=== PATIENT | female | born 1950 | race Caucasian/White ===

== ENCOUNTER → 2017-02-18 | Outpatient (CLI) | payer OTHER ==
[~2017-02-18] MED LIST: ASPI325T PO; ASPI81TA5 PO; ASPI81TA82 PO; ATOR10TA15 PO; BIOT10TA PO; BUPR150T3 PO; CHOL1CAP6 PO; CITA-48 PO; CITA40TA4 PO; FERR325T PO; HYDR-3516 PO; IBUP800T23 PO; OMEP20TA PO; OMEP20TA39 PO; PERI8.6T PO; TRAM50TA PO; UNIS50CA PO; VITA200C3 PO; VITA3000 PO; VITA400C70 PO; VITA500S3 PO; VITATAB43 PO; WALKER WHEELS/F1 MIS; WELL150T PO; [UNRECOGNIZED DRUG - CODE] PO
[2017-02-18 10:49] LABS: AUTOMATED NEUTROPHIL # 4.3 TH/MM3 (1.8-7.7); BASOPHIL # 0.1 TH/MM3 (0-0.2); BASOPHIL % 1.4 % (0.0-2.0); EOSINOPHIL # 0.3 TH/MM3 (0-0.4); EOSINOPHIL % 3.5 % (0.0-4.0); HEMATOCRIT 37.7 % (35.0-46.0); HEMO FLAGS DIFF FINAL; LYMPHOCYTE # 3.4 TH/MM3 (1.0-4.8); MEAN CELL VOLUME 82.6 FL (80.0-100.0); MEAN CORPUSCULAR HEMOGLOBIN 27.1 PG (27.0-34.0); MEAN CORPUSCULAR HGB CONC 32.8 % (32.0-36.0); NEUT % 48.1 % (16.0-70.0); PLATELET COUNT 273 TH/MM3 (150-450); RED BLOOD COUNT 4.57 MIL/MM3 (4.00-5.30); RED CELL DISTRIBUTION WIDTH 13.8 % (11.6-17.2)
[2017-02-18 10:55] LABS: INTERNATIONAL NORMALIZED RATIO 0.9 RATIO
[2017-02-18 11:16] LABS: BICARBONATE 28.2 MEQ/L (21.0-32.0); POTASSIUM 3.6 MEQ/L (3.5-5.1)
[2017-02-18 12:04] LABS: BLOOD, URINE NEG (NEG); GLUCOSE,URINE NEG (NEG); KETONE, URINE NEG (NEG); NITRITE,URINE NEG (NEG); PH, URINE 5.5 (5.0-8.5); URINE COLOR YELLOW (YELLW/STRAW)
[2017-02-18 12:07] LABS: COMMENT (UR) CATH-CULT NOT IND; CULTURE IF INDICATED CATH CULTURE NOT IND
--- NOTE | 2017-02-18 12:46 | RADRPT ---
EXAM DATE/TIME: 02/18/2017 11:54 [facility] COMPARISON: CHEST PA & LAT, December 26, 2015, 11:14. INDICATIONS : Evaluate for pneumonia,pneumothorax and communicable diseases. Pre-op Knee surgery MEDICAL HISTORY : None. SURGICAL HISTORY : None. ENCOUNTER: Initial ACUITY: 1 day PAIN SCORE: 0/10 LOCATION: chest FINDINGS: PA and lateral views of the chest demonstrate the lungs to be symmetrically aerated without evidence of mass, infiltrate or effusion. The cardiomediastinal contours are unremarkable. Degenerative disc disease throughout the thoracic spine. CONCLUSION: No acute disease. Andrew Berry Jr., MD on February 18, 2017 at 12:44 Board Certified Radiologist. This report was verified electronically.
--- NOTE | 2017-02-19 20:10 | EKG ---
Date Performed: 02/18/2017 Time Performed: 10:59:23 PTAGE: 66 years EKG: Sinus rhythm NONSPECIFIC T-WAVE ABNORMALITY BORDERLINE ECG Compared to prior tracing no significant change DOCTOR: Gemini Lucero Interpretating Date/Time 02/19/2017 20:08:54
== END ==
LOC: CPRE 10:10
PROVIDERS: ATTEND Orthopaedic Surgery
DX: Z01.812 Encounter for preprocedural laboratory examination (principal); Z01.811 Encounter for preprocedural respiratory examination; Z01.810 Encounter for preprocedural cardiovascular examination; S83.242D Other tear of medial meniscus, current injury, left knee, subsequent encounter; R94.31 Abnormal electrocardiogram [ECG] [EKG]; X58.XXXD Exposure to other specified factors, subsequent encounter
CPT/HCPCS: 36415; 71020; 80048; 81001; 85025; 85610; 93005

== ENCOUNTER 2017-03-05 05:09 | Inpatient (IN) | payer OTHER ==
--- NOTE | 2017-02-24 11:48 | MH ---
cc: JOAN RODRIGUEZ DATE OF ADMISSION: 03/05/2017 ADMITTING DIAGNOSIS 1. Chondromalacia, right knee. 2. Lateral meniscus tear, right knee. 3. Osteoarthritis, right knee. 4. Pain, right knee. HISTORY OF PRESENT ILLNESS The patient is a 66-year-old white female who has had a rather lengthy history of pain involving her right knee. She had undergone previous intervention and treatment for pain of the knee dating back at least 2-3 years for which she was diagnosed as having a lateral meniscus tear and subsequently underwent at least two arthroscopic surgeries, the more recent of which was completed in December of this past year. At that time findings also included osteoarthritis about her knee, although the patient was noted to have tolerated her operative procedure well and her initial recovery thereafter was satisfactory. She returned to the office in November of this year reporting that she was having pain and swelling about her right knee that had begun to interfere with her daily routine. X-ray studies at that time revealed hypertrophic reaction along the medial and lateral aspect of the joint consistent with an arthritic reaction. Findings and treatment options were reviewed. The patient was prescribed tramadol for pain management and followed on an outpatient basis thereafter. Unfortunately her symptoms persisted for which she did undergo a more current MRI scan with findings reporting a degenerative tear involving the body of the lateral meniscus as well as chondromalacia both laterally and medially with the patient continuing to note ongoing pain about her right knee. She had been taking ibuprofen 800 mg for pain management. Findings and treatment options were reviewed with the patient at that time. The pros and cons of continuing with conservative management versus operative intervention that would involve a repeat arthroscopic procedure as opposed to total knee arthroplasty was outlined in detail. The pluses and minuses of each of these surgical procedures was reviewed. Emphasis was made regarding the fact that the decision to proceed with surgery would be left entirely to the patient's discretion. At that time the patient noted that based upon her experience of having had at least two previous arthroscopic procedures and the ongoing pain that she was currently noting associated with limitations regarding all activities of daily living and no significant relief appreciated from continued use of medication, she was ready to proceed with surgery involving total knee arthroplasty as discussed. In compliance with her wishes she has currently been scheduled for admission in order that the above be accomplished. PAST MEDICAL/SURGICAL HISTORY Her past medical history, hospitalizations and surgeries have included: 1. Excision of a lipoma of the left shoulder. 2. section. 3. D&C following miscarriage. 4. Medical management for pulmonary embolus. Her medical illnesses include: 1. Gastric reflux. 2. Depression. 3. Elevated cholesterol. MEDICATIONS Current medications: 1. Omeprazole 20.6 mg daily. 2. Laurie-Colace 8.6 mg twice daily. 3. Wellbutrin 150 mg daily. 4. Citalopram 40 mg daily. 5. Atorvastatin 10 mg daily. 6. Unisom 50 mg, two at bedtime for sleep. 7. Tramadol 50 mg q.6h. p.r.n. pain. ALLERGIES THE PATIENT DESCRIBES A DRUG ALLERGY TO SULFA WHICH HAS BEEN ASSOCIATED WITH ITCHING, HIVES AND SWELLING. REVIEW OF SYSTEMS She does wear glasses. She has a history of seizure disorder but no current problems described. No headache or syncope. Auditory acuity intact. No tinnitus. No bleeding gums or dysphagia. She has partial lower dentures. No cough, shortness of breath, upper respiratory infection, pneumonia or tuberculosis. No angina or heart disease. Appetite is good. Bowel movements are regular. No hepatitis, gallbladder disease, ulcers or hemorrhoids. No urinary tract infection. No kidney stones. She has had a fracture of her right foot treated nonoperatively and positive history for psychiatric intervention for a history of depression. The remaining review of systems is unremarkable and noncontributory. FAMILY HISTORY 37 years. Her is 66 years of age. He has a history of depression as well as diagnosed with Agent [employer] exposure and being status post open heart surgery. Two sons are noted to be in good health. FAMILY HISTORY Positive for diabetes, kidney disease, cervical cancer and stroke. SOCIAL HISTORY The patient is a housewife. She completed a high school education. Denies active use of tobacco and ethanol. PHYSICAL EXAMINATION Height 5 feet 6 inches, weight 190 pounds. GENERAL: An alert, oriented and responsive 66-year-old white female who sits quietly upon the examination table with no obvious distress. HEAD, EYES, EARS, NOSE, AND THROAT: Pupils are equally round and reactive to light. Extraocular movements full. Sclera clear. External nares clear. External auditory canals clear. Semi-edentulous in the maxillary distribution. Mucous membranes pink and moist. Pharynx clear. NECK: Supple. Active mobility with no significant pain. Carotid pulse palpable bilaterally. Trachea midline. Thyroid without enlargement. LUNGS: Clear to auscultation and percussion. BACK: No CVA tenderness. No discomfort throughout the dorsolumbar spine. HEART: Regular rhythm. No murmur or gallop. ABDOMEN: Soft, nontender. Bowel sounds present. PELVIC: Per primary care physician. EXTREMITIES: Right Knee: No appreciable swelling or obvious effusion. Medial joint line tenderness without palpable deformity. Apprehension and compression sign negative. 0-90 degree range of motion with discomfort at the extreme of flexion. No obvious crepitation or instability. Marcus test and drawer sign negative. Pivot shift and Luba sign positive for lateral compartment pain. Straight-leg raising negative at 80 degrees. Satisfactory mobility of the right hip with no associated pain. Independent gait. NEUROLOGIC: Cranial nerves II through XII grossly intact. IMPRESSION 1. Chondromalacia, right knee. 2. Lateral meniscus tear, right knee. 3. Osteoarthritis, right knee. 4. Pain, right knee. 5. Co-morbidities including depression, elevated cholesterol and acid reflux. PLAN Right total knee arthroplasty. The nature of the planned surgical procedure, the potential complications and risks associated, the expectations of surgery and the consent form were thoroughly reviewed with the patient prior to her admission to the hospital. Annalise has indicated her full understanding regarding all of the above and given consent to proceed with treatment as outlined. Medical evaluation and clearance for surgery will be completed by her primary care physician, Dr. Jose Yates. Joan Rodriguez MD NBS/BT /11:16 AM /11:28 AM
[~2017-03-05] VITALS: Ht 168.9 cm; Wt 88.1 kg
[~2017-03-05 05:09] MED LIST changes: -ASPI325T PO; -ASPI81TA82 PO; -CHOL1CAP6 PO; -CITA-48 PO; -FERR325T PO; -HYDR-3516 PO; -IBUP800T23 PO; -OMEP20TA39 PO; -VITA400C70 PO; -VITA500S3 PO; -WALKER WHEELS/F1 MIS; -WELL150T PO; -[UNRECOGNIZED DRUG - CODE] PO
[2017-03-05] MEDS ORDERED: LACTATED RINGER'S 1000 ML IV PRN (05:45)
[2017-03-05] MEDS ORDERED: INSULIN HUMAN REGULAR 1,000 UNITS/10 ML VIAL SQ PRN (05:45)
[2017-03-05] MEDS ORDERED: CHLORHEXIDINE GLUCONATE 2 % 1 PACK (2 CLOTHS) TOPICAL PRN (05:45)
[2017-03-05] MEDS ORDERED: METOPROLOL TARTRATE 25 MG TAB PO PRN (05:45)
[2017-03-05] MEDS ORDERED: SODIUM CHLORID 0.9% 500 ML IV PRN (05:45)
[2017-03-05] MEDS ORDERED: POVIDONE IODINE 5% (ANTISEPSIS KIT) 4 APPLICATIONS EACH NARE PRN (05:45)
[2017-03-05] MEDS ORDERED: POVIDONE IODINE 7.5% SCRUB 118 ML BOTTLE TOPICAL SCH (06:00)
[2017-03-05] MEDS ORDERED: ceFAZolin 2 GM PREMIX 50 ML IV SCH (06:00)
[2017-03-05] MEDS: TRANEXAMIC ACID 1 GM PRIOR TO PROCEDURE IV SCH ×4 (06:10→06:13)
[2017-03-05] MEDS ORDERED: ceFAZolin INJ 1,000 MG VIAL ONE (06:11)
[2017-03-05] MEDS ORDERED: DEXAMETHASONE SOD PHOS 4 MG/ML VIAL ONE (06:33)
[2017-03-05] MEDS ORDERED: FAMOTIDINE 20 MG/2 ML VIAL ONE (06:33)
[2017-03-05] MEDS ORDERED: MIDAZOLAM HCL 2 MG/2 ML VIAL ONE (06:33)
[2017-03-05] MEDS ORDERED: ACETAMINOPHEN 1000 MG/100 ML 100 ML IV ONE (06:33)
[2017-03-05] MEDS ORDERED: DO NOT ADM ANY ANTICOAGULANT DRUGS PRN (09:11)
[2017-03-05] MEDS ORDERED: diphenhydrAMINE HCL 25 MG CAP PO PRN (09:30)
[2017-03-05] MEDS ORDERED: NALOXONE HCL 0.4 MG/ML AMP IV PRN (09:30)
[2017-03-05] MEDS ORDERED: ACETAMINOPHEN/HYDROcodone 325 MG/5 MG TAB PO PRN (09:30)
[2017-03-05] MEDS ORDERED: ACETAMINOPHEN 325 MG TAB PO PRN (09:30)
[2017-03-05] MEDS ORDERED: MISCELLANEOUS PHARMACY INFORMATION XX ONE (09:30)
[2017-03-05] MEDS ORDERED: Post-op Orders (for Pharmacy) MISC XX ONE (09:30)
[2017-03-05] MEDS ORDERED: SODIUM CHLORIDE 0.9% FLUSH 5 ML FLUSH IVF PRN (09:30)
[2017-03-05] MEDS ORDERED: TRANEXAMIC ACID INJ 1,000 MG in SODIUM CHLORIDE 0.9% INJ 100 ML IV SCH (09:30)
[2017-03-05] MEDS ORDERED: *HYDROmorphone PF 1 MG VIAL PERIprocedural Use ONLY ONE ×2 (09:32→09:55)
[2017-03-05] MEDS ORDERED: TRANEXAMIC ACID 1 GM POST-OP IV SCH ×2 (10:00)
[2017-03-05] MEDS: DEXT 5%-NACL 0.45% 1000 ML INJ 1,000 ML IV SCH ×2 (10:06→17:19)
--- NOTE | 2017-03-05 10:41 | MP ---
cc: JOAN RODRIGUEZ M.D. DATE OF SURGERY: 03/05/2017 PREOPERATIVE DIAGNOSIS Osteoarthritis of the right knee, chondromalacia right knee, lateral meniscus tear right knee and pain of the right knee. POSTOPERATIVE DIAGNOSIS Osteoarthritis of the right knee, chondromalacia right knee, lateral meniscus tear right knee and pain of the right knee. PROCEDURE Right total knee arthroplasty. SURGEON Dr. Joan Rodriguez ANESTHESIA General endotracheal. INDICATIONS A 66-year-old white female with a lengthy history of right knee pain extending back almost 3 years, at which time the patient was diagnosed as having a lateral meniscus tear for which she did undergo two previous arthroscopic surgeries, the more recent which was completed in December of this past year. At that time findings also noted osteoarthritic changes, although the patient was noted to have tolerated her operative procedure well and her initial recovery thereafter was satisfactory. She returned to the office in November reporting that she was having pain and swelling about her right knee that had begun to interfere with her daily routine. Her x-ray studies at that time revealed hypertrophic reaction along the medial and lateral aspect of the joint consistent with an arthritic reaction. Findings and treatment options were reviewed. The patient was prescribed tramadol for pain management and followed on outpatient basis. Unfortunately, her symptoms persisted for which she did undergo more current MRI scan with findings reporting a degenerative tear involving the body of the lateral meniscus with associated chondromalacia both medially and laterally. The patient had been taking ibuprofen 800 mg for pain management. Findings and treatment options were reviewed at that time, the pros and cons of continuing with conservative management versus operative intervention that would involve repeat arthroscopic surgery as opposed to total knee arthroplasty was outlined in detail. The pluses and minuses of each of the surgical procedures was reviewed. Emphasis were made regarding the fact that the decision to proceed with surgery would be left entirely to the patient's discretion. At that time the patient indicated that based upon her previous experience and having undergone two previous arthroscopic surgeries without long-term benefit being noted, she was ready to proceed with a more definitive course of treatment and expressed her desire to be admitted at this time in order that total knee replacement be accomplished. In compliance with her request she was admitted currently in order that the above be completed. FORMAT Following induction of satisfactory general anesthesia by endotracheal intubation as completed per the Department of Anesthesia, tourniquet was established around the proximal portion of the right lower extremity. The extremity proper was isolated with a U drape, thereafter being prepped with Betadine solution and draped into a sterile field in the routine manner. Prior to initiation of the actual procedure the standard time-out protocol was completed, all parameters were appropriately addressed and confirmed by operating room personnel. The extremity was elevated for approximately 1 minute and the tourniquet thus inflated to 250 mmHg pressure. A sharp skin incision was initiated midline over the anterior aspect of the knee and developed to underlying subcutaneous tissue with hemostasis maintained by electrocautery. Medial capsulotomy was completed with the patella subluxed in a lateral orientation. Examination of the joint space revealed significant tricompartmental degenerative changes, more pronounced than what her preoperative x-ray studies had suggested. The articular surface of the patella was resected with power saw. The three hole guide was utilized for establishing post holes. Anterior cruciate ligament as well as medial and lateral meniscus structures were sharply excised. A centering hole was placed in the distal aspect of the femur allowing positioning of the intramedullary guide. The distal femoral cutting jig was attached and the distal femur resected. AP measurement noted 67.5 mm sizing to be appropriate. The matching cutting block was positioned, anterior, posterior and chamfer cuts were completed. The tibial plateau was thereafter subluxed in an anterior orientation allowing positioning the extramedullary guide. Tibial plateau was resected and measured with 75 mm sizing determined to be appropriate. The trial reduction followed utilizing a 67.5 mm anatomic femoral component, a 75 mm tibial base with a 10 mm bearing insert. The knee was reduced and carried through a passive range of motion, stability was demonstrated at 0 and 90 degrees flexed posture. Orientation was confirmed as appropriate with measurement of the pelvic guide through the mechanical axis of the knee. A trial reduction followed utilizing a 34 mm standard patellar button. Once again good tracking demonstrated with no tendency toward subluxation. All trial components being removed the remaining portion of the proximal tibia was prepared for insertion of the permanent component. The joint space was thoroughly lavaged with pulsating antibiotic solution. Hemostasis was maintained by electrocautery. An autogenous bone plug was inserted into the distal femoral guide hole and thereafter a preparation of Palacos bone cement was utilized in inserting knee components in a sequential fashion which included a 75 mm fixed cruciate tibial plate to which a 10 mm Vanguard tibial bearing insert was secured with locking benavides. The 67.5 mm Vanguard femoral component was firmly seated onto the distal femur, excess cement being removed the knee was brought to full extension and thereafter the 34 mm standard three post all poly patellar button was attached and maintained in place with patellar clamp while cement hardening was completed. Final range of motion assessment noted good tracking stability throughout the knee. Irrigation was repeated with hemostasis maintained. Autovac drain tubes were inserted through superior stab wounds. The capsule was repaired with 0 Vicryl suture. The remaining portion of the wound was closed in layers in the routine manner. Skin margins being reapproximated with a running subcuticular 3-0 Vicryl suture over which Steri-Strips were applied. Xeroform gauze and a bulky dry sterile dressing was placed. Tourniquet was deflated after 51 minutes of tourniquet time, the extremity being supported in a canvas knee splint, anesthesia was discontinued. She was thereafter transferred to a hospital bed and returned to the recovery room in satisfactory condition having tolerated her operative procedure well. Estimated blood loss was approximately 150 ccs as determined per anesthesia. All implants were of the [employer] peanut shaker. Joan Rodriguez MD NBS/TLL /9:11 AM /10:07 AM
[2017-03-05] MEDS: MORPHINE SULFATE 30 MG/30 ML PCA IV SCH ×2 (11:09→21:48)
--- NOTE | 2017-03-05 11:19 | RADRPT ---
EXAM DATE/TIME: 03/05/2017 09:51 [facility] COMPARISON: No previous studies available for comparison. INDICATIONS : Post op right knee surgery MEDICAL HISTORY : None. SURGICAL HISTORY : None. ENCOUNTER: Initial ACUITY: 1 day PAIN SCORE: 8/10 LOCATION: Right knee FINDINGS: 2 view examination of the knee demonstrates non-cemented total knee arthroplasty. Osseous structures are in orthotopic position. 2 surgical drains are present in the suprapatellar region. CONCLUSION: Postop findings status post total knee arthroplasty. A Andrew Abrams MD on March 05, 2017 at 11:17 Board Certified Radiologist. This report was verified electronically.
[2017-03-05] MEDS ORDERED: PROPOFOL 200 MG/20 ML AMP IV ONE (13:41)
[2017-03-05] MEDS ORDERED: NEOSTIGMINE 3 MG/3 ML SYR IV ONE (13:41)
[2017-03-05] MEDS ORDERED: ePHEDrine/NS 25 MG/5 ML SYR IV ONE (13:41)
[2017-03-05] MEDS ORDERED: ONDANSETRON HCL 4 MG/2 ML VIAL IV PUSH ONE (13:41)
[2017-03-05] MEDS ORDERED: LACTATED RINGER'S 1000 ML INJ 1,000 ML IV ONE (13:41)
[2017-03-05 16:00] VITALS: BP_SYST 116; BP_SYST 134; BP_DIAS 59; BP_DIAS 66; PULSE 120; PULSE 94; RESP 16; TEMP 96.7; TEMP 97.2; O2SAT 96; O2SAT 97
[2017-03-05] MEDS: ONDANSETRON HCL 4 MG/2 ML VIAL IVP PRN (17:52)
[2017-03-05] MEDS: PCA - TOTAL MG MORPHINE DELIVERED PER SHIFT SCH ×2 (18:00→21:48)
[2017-03-05 20:05] VITALS: BP 122/59; PULSE 96; RESP 16; TEMP 98.7; O2SAT 95
[2017-03-05] MEDS ORDERED: ZOLPIDEM TARTRATE 5 MG TAB PO PRN (21:00)
[2017-03-05] MEDS: SODIUM CHLORIDE 0.9% FLUSH 5 ML FLUSH IVF SCH ×2 (21:47→21:57)
[2017-03-06] VITALS (7 sets, daily range): BP systolic 102–129; BP diastolic 52–63; PULSE 87–104; RESP 16–17; TEMP 97.2–99.2; O2SAT 92–95
[2017-03-06] MEDS: ONDANSETRON HCL 4 MG/2 ML VIAL IVP PRN ×2 (02:39→09:36)
[2017-03-06] MEDS: DEXT 5%-NACL 0.45% 1000 ML INJ 1,000 ML IV SCH ×2 (02:41→20:46)
[2017-03-06] MEDS ORDERED: ALPRAZolam 0.25 MG TAB PO ONE (04:00)
[2017-03-06] MEDS: ACETAMINOPHEN/HYDROcodone 325 MG/5 MG TAB PO PRN ×4 (04:07→20:47)
[2017-03-06 05:31] LABS: HEMATOCRIT 29.9 % (35.0-46.0); REVIEW FLAG FINAL
[2017-03-06] MEDS: PCA - TOTAL MG MORPHINE DELIVERED PER SHIFT SCH (06:00)
[2017-03-06] MEDS ORDERED: HYDR-3516 PO (06:09)
[2017-03-06] MEDS ORDERED: ASPI325T PO (06:09)
--- NOTE | 2017-03-06 06:11 | HHI.FF ---
Face to Face Verification Diagnosis: (1) DJD (degenerative joint disease) of knee Physical Therapy Gait training Knee: Total knee, Protocol: Right, Full weight bearing Right LE Weight Bearing: WB as tolerated Right LE Range of Motion: Active ROM Nursing Dressing Changes: Daily dressing change I have seen patient Annalise Dumont on 03/06/17. My clinical findings support the need for the requested home health care services because: Limited ability to care for self High risk of falls I certify that my clinical findings support that this patient is homebound because: Post-op weakness Unsteady gait/balance Unsafe to leave home unassisted Parviz Rodriguez MD Mar 06, 2017 06:11
[2017-03-06] MEDS ORDERED: WALKER WHEELS/F1 MIS (06:14)
[2017-03-06] MEDS: RIVAROXABAN 10 MG TAB PO SCH (07:57)
[2017-03-06] MEDS ORDERED: HYDROmorphone HCL PCA 6 MG/30 ML IV SCH (08:45)
[2017-03-06] MEDS ORDERED: NALOXONE HCL 0.4 MG/ML AMP IV PRN (08:45)
[2017-03-06] MEDS: SODIUM CHLORIDE 0.9% FLUSH 5 ML FLUSH IVF SCH ×2 (08:49→20:46)
[2017-03-06] MEDS ORDERED: BUPIVACAINE HCL PF 0.5% 30 ML VIAL NERV BLOCK ONE (10:03)
[2017-03-06] MEDS: PROMETHAZINE INJ 25 MG/ML VIAL IM PRN ×2 (14:26→20:47)
--- NOTE | 2017-03-06 16:21 | PD.CONS ---
HPI Service [facility] Consult Requested By Parviz Rodriguez M.D. Reason for Consult Medical management. Primary Care Physician Unknown Diagnoses: History of Present Illness Written by John Paul Molina PA-C, acting as scribe for Dr. Harrison Fulton on 03/06/17 at 16:12. Mrs. Dumont is 66 years old, with history of GERD, hyperlipidemia, depression, and H. pylori. Additionally she has had chronic right knee pain related to her osteoarthritis, meniscal tear and chondromalacia. Ms. Dumont underwent right total knee arthroplasty on 03/05/17. The hospitalist team was consulted in order to provide medical management for her chronic conditions. At time of interview, Ms. Dumont reported feeling nauseous and having bouts of emesis as a result of morphine use. She stated she had felt well before her surgery and since that time she has had multiple bouts of "throwing up." She stated that her pain was being well managed and rated it as a 5 out of 10. She noted that her knee felt "warm on the inside". Additionally, she reported feeling dizzy and having decreased focus, and "not being able to hold urine when throw up". She denied fever, cough, shortness of breath, abdominal/chest pain. She noted that her depression has been well controlled for the past 4 years. A 10 point review of systems was completed and, except as noted above, was negative. Review of Systems Except as stated in HPI: all other systems reviewed are Neg Past Family Social History Allergies: Coded Allergies: Sulfa (Sulfonamide Antibiotics) (Unverified Allergy, Intermediate, HIVES, 02/18/17) Uncoded Allergies: MDRO (Adverse Reaction, Unknown, 02/18/17) MRSA L LEG OVER 5 YEARS AGO Past Medical History Chronic right knee pain related to her osteoarthritis, meniscal tear and chondromalacia Depression, GERD, Hyperlipidemia, Iron deficiency H. pylori. Associated with bleeding ulcer and weight loss. She reported H. pylori being successfully treated with antibiotics and she has regained some of her weight. Past Surgical History . D and C post miscarriage. Excision of lipoma left shoulder 2 Reported Medications Reported Meds & Active Scripts Active Walker with Front Wheels (Device) 1 Mis Mis Ea .ROUTE DIRECTED use as directed per P.T. Aspirin 325 Mg Tab 325 Mg PO BID Hydrocodone-Acetaminophen 5-325 mg Tab 2 Tab PO Q6HR PRN Reported Tramadol (Tramadol HCl) 50 Mg Tab 100 Mg PO Q6H PRN Unisom Sleepgels (Diphenhydramine (Sleep)) 50 Mg Cap 50 Mg PO HS PRN Atorvastatin (Atorvastatin Calcium) 10 Mg Tab 10 Mg PO HS Citalopram (Citalopram Hydrobromide) 40 Mg Tab 40 Mg PO HS Bupropion HCl ER 24 HR (Bupropion HCl) 150 Mg Tab 150 Mg PO HS Laurie-Colace (Sennosides-Docusate Sodium) 8.6-50 Mg Tab 1 Tab PO BID Omeprazole 20 Mg Tab 20 Mg PO DAILY Aspirin DR (Aspirin) 81 Mg Tabdr 81 Mg PO DAILY Vitamin T19-Etnny Acid (Cobalamine Combinations) 500-400 Mcg Tab 2 Tab PO DAILY Biotin 10 Mg Tab 10 Mg PO DAILY Vitamin E 200 Unit Cap 400 Units PO DAILY Vitamin D3 (Cholecalciferol) 3,000 Unit Tab 3,000 Units PO DAILY Active Ordered Medications Current Medications Medications (Trade) Dose Ordered Sig/Alvin Route Start Time Stop Time Status Last Admin Lactated Ringer's 1,000 ml @ 30 mls/hr Q24H PRN IV 03/05/17 05:45 03/08/17 05:44 03/05/17 05:45 Sodium Chloride 500 ml @ 30 mls/hr [id number] PRN IV 03/05/17 05:45 03/08/17 05:44 (Lopressor) 25 mg ON AWAKE COUNSELOR PRN PO 03/05/17 05:45 03/08/17 05:44 (Betadine 5% Antisepsis Kit) 1 applic ON AWAKE COUNSELOR PRN EACH NARE 03/05/17 05:45 03/08/17 05:44 03/05/17 05:45 (Chlorhexidine 2% Cloth) 3 pack ON AWAKE COUNSELOR PRN TOPICAL 03/05/17 05:45 03/08/17 05:44 03/05/17 05:20 (NovoLIN R INJ) See Protocol Table ... ON AWAKE COUNSELOR PRN SQ 03/05/17 05:45 03/08/17 05:44 (Betadine 7.5% Scrub) 1 applic ONCE TOPICAL 03/05/17 06:00 03/08/17 05:59 Cefazolin Sodium/ Dextrose 50 ml @ 100 mls/hr ON AWAKE COUNSELOR IV 03/05/17 06:00 03/08/17 05:59 03/05/17 06:00 (NS Flush) 2 ml UNSCH PRN IVF 03/05/17 09:30 (NS Flush) 2 ml BID IVF 03/05/17 21:00 03/06/17 08:49 (Xarelto) 10 mg Q24H PO 03/06/17 08:00 03/06/17 07:57 ([place] 5-325 Mg) 1 tab Q4H PRN PO 03/05/17 09:30 ([place] 5-325 Mg) 2 tab Q4H PRN PO 03/05/17 09:30 03/06/17 14:27 (Tylenol) 650 mg Q6H PRN PO 03/05/17 09:30 (Zofran Inj) 4 mg Q6H PRN IVP 03/05/17 09:30 03/06/17 09:36 (Colace) 100 mg BID PRN PO 03/05/17 09:30 (Ambien) 5 mg HS PRN PO 03/05/17 21:00 (Benadryl) 25 mg Q6H PRN PO 03/05/17 09:30 03/07/17 09:29 Dextrose/Sodium Chloride 1,000 ml @ 125 mls/hr Q8H IV 03/05/17 09:19 03/06/17 02:41 (Dilaudid WILDLIFE BIOLOGY TECHNICIAN Inj) 6 mg UNSCH IV 03/06/17 08:45 WILDLIFE BIOLOGY TECHNICIAN Dosage Infused (Pha) 1 Q8HR .XX 03/06/17 14:00 (Narcan Inj) 0.4 mg UNSCH PRN IV 03/06/17 08:45 (Wellbutrin Sr) 150 mg HS PO 03/06/17 21:00 (CeleXA) 40 mg HS PO 03/06/17 21:00 (Protonix) 20 mg DAILY PO 03/07/17 09:00 (Phenergan Inj) 12.5 mg Q4H PRN IM 03/06/17 15:00 03/06/17 14:26 Family History Diabetes Kidney disease Cervical cancer Stroke Social History Patient denied lifelong nicotine use. Illicit and recreational drugs were denied. Alcohol use was denied. Physical Exam Vital Signs Vital Signs Date Time Temp Pulse Resp B/P (MAP) Pulse Ox O2 Delivery O2 Flow Rate FiO2 03/06/17 12:07 95 21 03/06/17 12:00 98.5 93 16 103/56 (72) 95 03/06/17 08:00 99.2 96 16 102/56 (71) 95 03/06/17 06:00 18 03/06/17 04:00 98.2 94 17 110/52 (71) 95 03/06/17 00:00 98.2 104 17 117/63 (81) 93 03/05/17 21:48 17 03/05/17 21:48 17 03/05/17 21:04 21 03/05/17 20:05 98.7 96 16 122/59 (80) 95 03/05/17 18:00 15 03/05/17 16:00 97.2 94 16 116/66 (83) 97 Physical Exam GENERAL: This is a well-nourished, well-developed patient, in no apparent distress. SKIN: No rashes, ecchymoses or lesions. Cool and dry. Right knee wrapped in Brendan bandage HEAD: Atraumatic. Normocephalic. EYES: Pupils equal round and reactive. Extraocular motions intact. No scleral icterus. No injection or drainage. ENT: Nose without bleeding or purulent drainage. Airway patent. NECK: Trachea midline. No lymphadenopathy. Supple and nontender. CARDIOVASCULAR: Regular rate and rhythm without murmurs, gallops, or rubs. RESPIRATORY: Clear to auscultation. Breath sounds equal bilaterally. No wheezes , rales, or rhonchi. GASTROINTESTINAL: Abdomen soft, non-tender, nondistended. No hepato- splenomegaly or guarding. MUSCULOSKELETAL: Extremities without clubbing, cyanosis, or edema. No joint tenderness, effusion, or edema noted. No calf tenderness. Negative Homans sign bilaterally. NEUROLOGICAL: Awake and alert. Cranial nerves II through XII intact. Motor and sensory grossly within normal limits. Speech clear and fluent. Laboratory Laboratory Tests Test 03/06/17 05:04 Hemoglobin 10.1 Hematocrit 29.9 Result Diagram: 03/06/17 0504 Imaging Last Impressions Knee X-Ray 03/05/17 0919 Signed Impressions: Service Date/Time: Sunday, March 05, 2017 09:51 - CONCLUSION: Postop findings status post total knee arthroplasty. A Andrew Abrams MD Assessment and Plan Problem List: (1) Depression ICD Code: F32.9 - Major depressive disorder, single episode, unspecified (2) DJD (degenerative joint disease) of knee ICD Code: M17.10 - Unilateral primary osteoarthritis, unspecified knee (3) Nausea and vomiting ICD Code: R11.2 - Nausea with vomiting, unspecified Status: Acute Assessment and Plan Mrs. Dumont is 66 years old, with history of GERD, hyperlipidemia, depression, and H. pylori. Additionally she has had chronic right knee pain related to her osteoarthritis, meniscal tear and chondromalacia. Ms. Dumont underwent right total knee arthroplasty on 03/05/17. The hospitalist team was consulted in order to provide medical management for her chronic conditions. Status post right total arthroplasty -Rehabilitation per orthopedics. -Pain management per orthopedics. Depression -Continue home regimen of Wellbutrin 150 mg q hs -Continue home regimen of Celexa 40 mg daily Nausea and vomiting -Promethazine IM 12.5 mg every 4 hours when necessary GI prophylaxis -Protonix 20 mg daily DVT prophylaxis -Xarelto 10 mg Discussed Condition With Patient This note was transcribed by scribe [John Paul Molina PA-C]. I, Dr. Delfino Fulton personally performed the history, physical exam, and medical decision making; and confirmed the accuracy of the information in the transcribed note. Authenticated by Dr. Delfino Fulton on 03/06/17 at 22:34. Problem Qualifiers (1) DJD (degenerative joint disease) of knee: Qualified Codes: M17.11 - Unilateral primary osteoarthritis, right knee (2) Nausea and vomiting: Qualified Codes: R11.2 - Nausea with vomiting, unspecified John Paul Molina Jr. Mar 06, 2017 16:21 Delfino Fulton MD Mar 06, 2017 22:34
[2017-03-06] MEDS: buPROPion HCL 150 MG SUSTAINED RELEASE TAB PO SCH (20:45)
[2017-03-06] MEDS: PCA - TOTAL MG DILAUDID DELIVERED PER SHIFT SCH (20:46)
[2017-03-06] MEDS: CITALOPRAM HYDROBROMIDE 40 MG TAB PO SCH (20:46)
[2017-03-07] VITALS: BP 121/56; PULSE 80; RESP 16; TEMP 98; O2SAT 94
[2017-03-07] MEDS: ACETAMINOPHEN/HYDROcodone 325 MG/5 MG TAB PO PRN ×5 (01:06→19:41)
[2017-03-07] MEDS: PROMETHAZINE INJ 25 MG/ML VIAL IM PRN ×2 (01:07→05:15)
[2017-03-07] MEDS: PCA - TOTAL MG DILAUDID DELIVERED PER SHIFT SCH ×4 (03:33→19:29)
[2017-03-07 08:00] VITALS: BP_SYST 122; BP_SYST 125; BP_DIAS 61; BP_DIAS 69; PULSE 88; PULSE 97; RESP 18; RESP 20; TEMP 100.2; TEMP 97.6; O2SAT 96; O2SAT 97
[2017-03-07] MEDS: PANTOPRAZOLE SOD 20 MG DELAYED RELEASE TAB PO SCH (08:25)
[2017-03-07] MEDS: RIVAROXABAN 10 MG TAB PO SCH (08:25)
[2017-03-07] MEDS: SODIUM CHLORIDE 0.9% FLUSH 5 ML FLUSH IVF SCH ×2 (08:26→19:42)
[2017-03-07] MEDS: DEXT 5%-NACL 0.45% 1000 ML INJ 1,000 ML IV SCH ×3 (09:19→19:28)
[2017-03-07 10:11] LABS: BICARBONATE 31.1 MEQ/L (21.0-32.0); POTASSIUM 3.8 MEQ/L (3.5-5.1)
[2017-03-07 12:00] VITALS: BP 133/67; PULSE 97; RESP 18; TEMP 98.5; O2SAT 94
[2017-03-07] MEDS ORDERED: BENZOCAINE-MENTHOL (SUGAR FREE) 15 MG-3.6 MG LOZENGE BUCCAL PRN (12:45)
[2017-03-07] MEDS: DOCUSATE SODIUM 100 MG CAP PO PRN (15:38)
[2017-03-07] MEDS: PROMETHAZINE HCL 25 MG TAB PO PRN ×2 (15:39→19:41)
--- NOTE | 2017-03-07 15:51 | HHI.PR ---
Subjective Remarks Follow-up visit for medical management of orthopedic surgical patient. Pt reported having a better day upon this visit. She noted her nausea and vomiting had greatly improved. She reported eating solid food and not "throwing up." Reported her antidepressant medication has been resumed. Endorsed having a "sore throat from all the throwing up I did yesterday." She endorsed having a "fever of 100 degrees over night." She reported knee pain 5/10 pain. She said she had recently completed physical therapy. Said her pain is generally controlled. Noted pain of "8 or 9 out of 10 yesterday afternoon." Pt denied cough, shortness of breath, body aches, chills, shakes, bloody urine or stool. Per RN (Altagracia) she stated pt's nausea is better controlled. She and pt requested change to oral formulation of Phenergan. Objective Vitals Vital Signs Date Time Temp Pulse Resp B/P (MAP) Pulse Ox O2 Delivery O2 Flow Rate FiO2 03/07/17 12:00 98.5 97 18 133/67 (89) 94 03/07/17 08:00 97.6 88 20 125/69 (87) 97 03/07/17 08:00 100.2 97 18 122/61 (81) 96 03/07/17 00:00 98.0 80 16 121/56 (77) 94 03/06/17 20:00 97.2 94 16 122/62 (82) 95 03/06/17 16:00 98.2 87 16 129/62 (84) 92 I/O 03/06/17 03/06/17 03/06/17 03/07/17 03/07/17 03/07/17 06:59 14:59 22:59 06:59 14:59 22:59 Intake Total 340 ml 480 ml 720 ml 480 ml Output Total 110 ml 100 ml 90 ml 90 ml Balance 230 ml 380 ml 630 ml 390 ml Intake Oral 240 ml 480 ml 720 ml 480 ml IV Total 100 ml Output Drainage Total 110 ml 100 ml 90 ml 90 ml # Voids 4 4 3 2 # Bowel Movements 0 0 Result Diagram: 03/06/17 0504 03/07/17 0909 Imaging Last Impressions Knee X-Ray 03/05/17918 Signed Impressions: Service Date/Time: Sunday, March 05, 2017 09:51 - CONCLUSION: Postop findings status post total knee arthroplasty. Svetlana Abrams MD Objective Remarks GENERAL: Patient encountered lying in bed. NAD SKIN: Warm and dry. bandage covering right knee site of recent surgery. HEAD: Normocephalic. EYES: No scleral icterus. No injection or drainage. NECK: Supple, trachea midline. No lymphadenopathy. CARDIOVASCULAR: Regular rate and rhythm without murmurs, gallops, or rubs. RESPIRATORY: Breath sounds equal bilaterally. No wheezes rhonchi or crackles. No accessory muscle use. GASTROINTESTINAL: Abdomen soft, non-tender, nondistended. MUSCULOSKELETAL: No cyanosis, or edema. PSYCHIATRIC: Appropriate mood and affect; insight and judgment normal. Patient was pleasant and cooperative. Speech was clear and fluent. Procedures Total right knee arthroplasty Medications and IVs Current Medications Medications (Trade) Dose Ordered Sig/Alvin Route Start Time Stop Time Status Last Admin Lactated Ringer's 1,000 ml @ 30 mls/hr Q24H PRN IV 03/05/17 05:45 03/08/17 05:44 03/05/17 05:45 Sodium Chloride 500 ml @ 30 mls/hr [id number] PRN IV 03/05/17 05:45 03/08/17 05:44 (Lopressor) 25 mg BILLET CHECKER PRN PO 03/05/17 05:45 03/08/17 05:44 (Betadine 5% Antisepsis Kit) 1 applic BILLET CHECKER PRN EACH NARE 03/05/17 05:45 03/08/17 05:44 03/05/17 05:45 (Chlorhexidine 2% Cloth) 3 pack BILLET CHECKER PRN TOPICAL 03/05/17 05:45 03/08/17 05:44 03/05/17 05:20 (NovoLIN R INJ) See Protocol Table ... BILLET CHECKER PRN SQ 03/05/17 05:45 03/08/17 05:44 (Betadine 7.5% Scrub) 1 applic ONCE TOPICAL 03/05/17 06:00 03/08/17 05:59 Cefazolin Sodium/ Dextrose 50 ml @ 100 mls/hr BILLET CHECKER IV 03/05/17 06:00 03/08/17 05:59 03/05/17 06:00 (NS Flush) 2 ml UNSCH PRN IVF 03/05/17 09:30 (NS Flush) 2 ml BID IVF 03/05/17 21:00 03/06/17 08:49 (Xarelto) 10 mg Q24H PO 03/06/17 08:00 03/07/17 08:25 ([place] 5-325 Mg) 1 tab Q4H PRN PO 03/05/17 09:30 ([place] 5-325 Mg) 2 tab Q4H PRN PO 03/05/17 09:30 03/07/17 10:35 (Tylenol) 650 mg Q6H PRN PO 03/05/17 09:30 (Zofran Inj) 4 mg Q6H PRN IVP 03/05/17 09:30 03/06/17 09:36 (Colace) 100 mg BID PRN PO 03/05/17 09:30 (Ambien) 5 mg HS PRN PO 03/05/17 21:00 Dextrose/Sodium Chloride 1,000 ml @ 125 mls/hr Q8H IV 03/05/17 09:19 03/06/17 02:41 (Dilaudid COOK ICE CREAM Inj) 6 mg UNSCH IV 03/06/17 08:45 COOK ICE CREAM Dosage Infused (Pha) 1 Q8HR .XX 03/06/17 14:00 (Narcan Inj) 0.4 mg UNSCH PRN IV 03/06/17 08:45 (Wellbutrin Sr) 150 mg HS PO 03/06/17 21:00 03/06/17 20:45 (CeleXA) 40 mg HS PO 03/06/17 21:00 03/06/17 20:46 (Protonix) 20 mg DAILY PO 03/07/17 09:00 03/07/17 08:25 (Phenergan) 12.5 mg Q4H PRN PO 03/07/17 12:00 (Cepacol Extra Cris (Sugar Free)) 1 lozenge Q2HR PRN BUCCAL 03/07/17 12:45 Urinary Catheter: No A/P Problem List: (1) Depression ICD Code: F32.9 - Major depressive disorder, single episode, unspecified (2) DJD (degenerative joint disease) of knee ICD Code: M17.10 - Unilateral primary osteoarthritis, unspecified knee (3) Nausea and vomiting ICD Code: R11.2 - Nausea with vomiting, unspecified Status: Acute Assessment and Plan Mrs. Dumont is 66 years old, with history of GERD, hyperlipidemia, depression, and H. pylori. Additionally she has had chronic right knee pain related to her osteoarthritis, meniscal tear and chondromalacia. Ms. Dumont underwent right total knee arthroplasty on 03/05/17. The hospitalist team was consulted in order to provide medical management for her chronic conditions. Nausea and vomiting: Improved. Discontinued Phenergan 12.5 mg IM and replaced with Phenergan 12.5 mg by mouth. Status post right total arthroplasty -Rehabilitation per orthopedics. -Pain management per orthopedics. Depression -Continue home regimen of Wellbutrin 150 mg q hs -Continue home regimen of Celexa 40 mg daily Nausea and vomiting -Promethazine IM 12.5 mg every 4 hours when necessary GI prophylaxis -Protonix 20 mg daily DVT prophylaxis -Xarelto 10 mg Case discussed with Pt, RN and Dr. Fulton. Discharge Planning Discharge plans include pt going to SNF when ready and bed is available. Problem Qualifiers (1) DJD (degenerative joint disease) of knee: Qualified Codes: M17.11 - Unilateral primary osteoarthritis, right knee (2) Nausea and vomiting: Qualified Codes: R11.2 - Nausea with vomiting, unspecified John Paul Molina Jr. Mar 07, 2017 15:51
[2017-03-07] MEDS: buPROPion HCL 150 MG SUSTAINED RELEASE TAB PO SCH (19:41)
[2017-03-07] MEDS: CITALOPRAM HYDROBROMIDE 40 MG TAB PO SCH (19:41)
[2017-03-07 20:00] VITALS: BP 128/64; PULSE 95; RESP 18; TEMP 100; O2SAT 94
[2017-03-08] VITALS: BP 146/78; PULSE 110; RESP 18; TEMP 100.7; O2SAT 94
[2017-03-08 04:00] VITALS: BP 139/65; PULSE 100; RESP 20; TEMP 100.7; O2SAT 94
[2017-03-08] MEDS: DOCUSATE SODIUM 100 MG CAP PO PRN (05:08)
[2017-03-08] MEDS: PROMETHAZINE HCL 25 MG TAB PO PRN (05:08)
[2017-03-08] MEDS: ACETAMINOPHEN/HYDROcodone 325 MG/5 MG TAB PO PRN ×2 (05:09→11:23)
[2017-03-08] MEDS ORDERED: BISACODYL 10 MG SUPP RECTAL ONE (07:45)
[2017-03-08] MEDS: RIVAROXABAN 10 MG TAB PO SCH (07:46)
[2017-03-08] MEDS: PANTOPRAZOLE SOD 20 MG DELAYED RELEASE TAB PO SCH (07:46)
[2017-03-08] MEDS: SODIUM CHLORIDE 0.9% FLUSH 5 ML FLUSH IVF SCH (07:56)
[2017-03-08 08:00] VITALS: BP 125/60; PULSE 105; RESP 16; TEMP 98.1; O2SAT 96
[2017-03-08] MEDS ORDERED: BISACODYL EC 5 MG TABEC PO SCH (09:00)
[2017-03-08] MEDS ORDERED: POLYETHYLENE GLYCOL 17 GM PKG PO SCH (09:00)
[2017-03-08] MEDS ORDERED: DOCUSATE SODIUM 100 MG CAP PO SCH (09:00)
[2017-03-08] MEDS ORDERED: MAGNESIUM HYDROXIDE SUSP 30 ML CUP PO SCH (09:00)
[2017-03-08] MEDS: DEXT 5%-NACL 0.45% 1000 ML INJ 1,000 ML IV SCH (09:19)
--- NOTE | 2017-03-08 15:37 | HHI.PR ---
Subjective Remarks Follow-up visit for medical management of orthopedic surgical patient. Pt reported having a better day upon this visit. She noted her nausea is greatly improved with medication and has not experienced vomiting in the past 24 hours. She noted her sore throat continues but has lessened. She endorsed having a "fever" overnight. None at present. Patient reported knee pain is less. And reported having been up several times today walking the halls with her walker; without incident. Pt denied cough, shortness of breath, body aches, chills, shakes, bloody urine or stool. Per RN (Clare) she stated no issues reported overnight or since start of shift. Objective Vitals Vital Signs Date Time Temp Pulse Resp B/P (MAP) Pulse Ox O2 Delivery O2 Flow Rate FiO2 03/08/17 08:00 98.1 105 16 125/60 (81) 96 03/08/17 04:00 100.7 100 20 139/65 (89) 94 03/08/17 00:00 100.7 110 18 146/78 (100) 94 03/07/17 20:00 100.0 95 18 128/64 (85) 94 I/O 03/07/17 03/07/17 03/07/17 03/08/17 03/08/17 03/08/17 06:59 14:59 22:59 06:59 14:59 22:59 Intake Total 480 ml 360 ml Output Total 90 ml Balance 390 ml 360 ml Intake Oral 480 ml 360 ml Output Drainage Total 90 ml # Voids 2 4 # Bowel Movements 0 Result Diagram: 03/06/17 0504 03/07/17908 Imaging Last Impressions Knee X-Ray 03/05/17918 Signed Impressions: Service Date/Time: Sunday, March 05, 2017 09:51 - CONCLUSION: Postop findings status post total knee arthroplasty. A Andrew Abrams MD Objective Remarks GENERAL: Patient encountered lying in bed. NAD SKIN: Warm and dry. bandage covering right knee site of recent surgery. HEAD: Normocephalic. EYES: No scleral icterus. No injection or drainage. NECK: Supple, trachea midline. No lymphadenopathy. CARDIOVASCULAR: Regular rate and rhythm without murmurs, gallops, or rubs. RESPIRATORY: Breath sounds equal bilaterally. No wheezes rhonchi or crackles. No accessory muscle use. GASTROINTESTINAL: Abdomen soft, non-tender, nondistended. MUSCULOSKELETAL: No cyanosis, or edema. PSYCHIATRIC: Appropriate mood and affect; insight and judgment normal. Patient was pleasant and cooperative. Speech was clear and fluent. Procedures Total right knee arthroplasty Urinary Catheter: No A/P Problem List: (1) Depression ICD Code: F32.9 - Major depressive disorder, single episode, unspecified (2) DJD (degenerative joint disease) of knee ICD Code: M17.10 - Unilateral primary osteoarthritis, unspecified knee (3) Nausea and vomiting ICD Code: R11.2 - Nausea with vomiting, unspecified Status: Acute Assessment and Plan Mrs. Dumont is 66 years old, with history of GERD, hyperlipidemia, depression, and H. pylori. Additionally she has had chronic right knee pain related to her osteoarthritis, meniscal tear and chondromalacia. Ms. Dumont underwent right total knee arthroplasty on 03/05/17. The hospitalist team was consulted in order to provide medical management for her chronic conditions. Nausea and vomiting: Vomiting resolved. Nausea controlled with current Phenergan regimen. Patient to be discharged later today. Medically stable. Status post right total arthroplasty -Rehabilitation per orthopedics. -Pain management per orthopedics. Depression -Continue home regimen of Wellbutrin 150 mg q hs -Continue home regimen of Celexa 40 mg daily Nausea and vomiting -Promethazine IM 12.5 mg every 4 hours when necessary GI prophylaxis -Protonix 20 mg daily DVT prophylaxis -Xarelto 10 mg Case discussed with Pt, RN and Dr. Fulton. Discharge Planning Discharge plans include pt going to SNF when ready and bed is available. Problem Qualifiers (1) DJD (degenerative joint disease) of knee: Qualified Codes: M17.11 - Unilateral primary osteoarthritis, right knee (2) Nausea and vomiting: Qualified Codes: R11.2 - Nausea with vomiting, unspecified John Paul Molina Jr. Mar 08, 2017 15:37
--- NOTE | 2017-03-11 08:56 | MD ---
cc: JOAN RODRIGUEZ,FRANK Terry M.D. ADMISSION DATE: 03/05/2017 DISCHARGE DATE: 03/08/2017 ADMISSION DIAGNOSIS Osteoarthritis of the right knee. Chondromalacia right knee. Lateral meniscus tear right knee and pain of the right knee. DISCHARGED DIAGNOSIS Osteoarthritis of the right knee. Chondromalacia right knee. Lateral meniscus tear right knee and pain of the right knee. HISTORY The patient is a 66-year-old white female with a lengthy history of pain involving her right knee. She had undergone two previous arthroscopic procedures during the preceding years for which she was diagnosed as having a lateral meniscus tear with a more recent procedure having been completed in December of this past year. At that time findings did identify osteoarthritic changes, although the patient was noted to have tolerated her operative procedure well and her initial recovery thereafter was satisfactory. She returned to the office in November of this year reporting that she was having pain and swelling about her right knee which had begun to interfere with her daily routine. Her x-ray studies revealed hypertrophic reaction along the medial and lateral aspect of the joint consistent with an arthritic reaction. Findings and treatment options were reviewed with the patient. She was prescribed tramadol for pain management and followed on an outpatient basis. Unfortunately, her symptoms persisted and she did undergo a more recent MRI scan with findings reporting a degenerative tear involving the body of the lateral meniscus as well as chondromalacia medial and laterally about the knee joint. She had been taking ibuprofen 800 milligrams for pain management. Again, findings and treatment options were reviewed. The pros and cons of continuing with conservative management versus operative intervention that would involve a repeat arthroscopic procedure as opposed to total knee arthroplasty was outlined in detail. The pluses and minuses of each of these surgical procedures was reviewed. Emphasis was made regarding the fact that the decision to proceed with surgery would be left entirely to the patient's discretion. At that time the patient noted that based upon her previous experience and having had at least two arthroscopic procedures in the past that did not result in long-term benefit she expressed her desire to proceed with a more definitive course of intervention involving total knee arthroplasty. In compliance with her wishes she was scheduled for admission at this time in order that the above be accomplished. Her physical examination at the time admission revealed no appreciable swelling or effusion about the right knee. There was medial joint line tenderness without palpable deformity. Apprehension and compression sign were negative. Zero to 90 degrees range of motion with discomfort at the extreme of flexion. No obvious crepitation or instability. Marcus test and drawer sign negative. Pivot shift and Luba sign positive for lateral compartment pain. Straight-leg raising negative at 80 degrees. Satisfactory mobility of the right hip with no associated pain. Independent gait. HOSPITAL COURSE Prior to admission to the hospital the patient had undergone medical evaluation and clearance for surgery as completed by her primary care physician, Dr. Frank Yates. She was taken to the operating room on 05 March 2017 and on that date underwent a right total knee arthroplasty completed in an uncomplicated manner. The patient was noted to have tolerated her operative procedure well. Her postoperative course was stable thereafter. Hemoglobin/hematocrit assessment postoperatively was 10.1 and 29.9 respectively. The patient did experience nausea and vomiting during the initial 24 hours following surgery that was thought to be related to reaction to morphine. Medication was adjusted and symptoms were noted to resolve. The patient was gradually mobilized under guidance of physical therapy being permitted weightbearing to tolerance about the right lower extremity. Follow up examination of her surgical wound noted to be intact, healing favorably, no evidence of infection. Medical followup per the hospitalist service. DVT prophylaxis initiated. patient services coordinator consulted to assist with discharge planning. The patient indicated her desire for temporary rehab placement. Plans were finalized in this regard and pending medical clearance she was scheduled for transfer on the third postoperative day at which time she was noted to be making favorable progress with regards to her rehab program. She was scheduled be seen in office followup in approximately 4 weeks. Her condition at the time of discharge was stable and prognosis favorable. MEDICATIONS Discharge medications included: 1. Hydrocodone 5/325, #16. 2. Aspirin 325 milligrams 1 tablet twice daily for 3 weeks #40. Joan Rodriguez MD NBS/EO /6:36 AM /8:47 AM
== END 2017-03-08 12:30 | DRG 470 ==
LOC: HSDI 05:09 → N06A 16:25
PROVIDERS: ADMIT Orthopaedic Surgery; ATTEND Orthopaedic Surgery
PROC: 0SRC0J9 Replacement of Right Knee Joint with Synthetic Substitute, Cemented, Open Approach (ICD-10-PCS; principal; 2017-03-05 06:37)
DX: M17.11 Unilateral primary osteoarthritis, right knee (principal); F32.9 Major depressive disorder, single episode, unspecified; K21.9 Gastro-esophageal reflux disease without esophagitis; M94.261 Chondromalacia, right knee; M23.200 Derangement of unspecified lateral meniscus due to old tear or injury, right knee; E78.00 Pure hypercholesterolemia, unspecified; E78.5 Hyperlipidemia, unspecified; R11.2 Nausea with vomiting, unspecified; Z86.711 Personal history of pulmonary embolism; Z88.2 Allergy status to sulfonamides
CPT/HCPCS: 73560; 80048; 85014; 85018; 86850; 86900; 86901; 88305; 94150; C1776; J0131; J0690; J1100; J1170; J2250; J2270; J2405; J2550; J2710; J3010; J7120; L1830; Q0169

== ENCOUNTER 2017-09-01 23:25 | Emergency (ER) | payer OTHER ==
[~2017-09-01] VITALS: Ht 157.5 cm; Wt 85.0 kg
[~2017-09-01 23:25] MED LIST changes: +ASPI-183 PO; -ASPI81TA5 PO; +HYDR-3516 PO; -OMEP20TA PO; +OMEP20TA93 PO; -TRAM50TA PO; +WALKER WHEELS/F1 MIS
[2017-09-01 23:33] VITALS: BP 148/67; PULSE 73; RESP 18; TEMP 98.1; O2SAT 98
--- NOTE | 2017-09-02 00:09 | PD ---
HPI Chief Complaint: Fall Time Seen by Provider: 23:54 Travel History International Travel<30 days: No Contact w/Intl Traveler<30days: No Traveled to known affect area: No History of Present Illness HPI 66-year-old female complains of headache, neck pain, right shoulder pain, right hip pain right knee pain. Patient tripped and fell this evening. Patient denies loss of consciousness. Patient denies any posterior aspect the right hip anterior aspect the right knee. Patient denies any chest pain or shortness of breath. Patient denies abdominal pain. Patient denies any back pain. Patient denies any focal weakness or numbness of extremity. Patient status post right knee surgery in the past. Patient denies any nausea vomiting. PFSH Past Medical History Depression: Yes Cancer: No Cardiovascular Problems: No High Cholesterol: Yes Diabetes: No Endocrine: No Gastrointestinal Disorders: Yes (GERD) Genitourinary: No Hepatitis: No Hiatal Hernia: Yes Immune Disorder: No Musculoskeletal: Yes (ARTHRITIS, RIGHT KNEE PAIN) Neurologic: No Psychiatric: Yes (DEPRESSION, ANXIETY) Reproductive: No Respiratory: Yes (PE IN THE PAST) Thyroid Disease: No Tetanus Vaccination: Unknown Influenza Vaccination: No ?: Not Past Surgical History Abdominal Surgery: No AICD: No Body Medical Devices: NONE Cardiac Surgery: No Endocrine Surgery: No Genitourinary Surgery: No Gynecologic Surgery: Yes (C SECTION) Joint Replacement: No Pacemaker: No Thoracic Surgery: No Other Surgery: Yes Social History Alcohol Use: No Tobacco Use: No Substance Use: No Allergies-Medications (Allergen,Severity, Reaction): Coded Allergies: Sulfa (Sulfonamide Antibiotics) (Unverified Allergy, Intermediate, HIVES, 09/01/17) Uncoded Allergies: MDRO (Adverse Reaction, Unknown, 02/18/17) MRSA L LEG OVER 5 YEARS AGO Reported Meds & Prescriptions Reported Meds & Active Scripts Active Aspirin 325 Mg Tab 325 Mg PO BID Reported Atorvastatin (Atorvastatin Calcium) 10 Mg Tab 10 Mg PO HS Citalopram (Citalopram Hydrobromide) 40 Mg Tab 40 Mg PO HS Bupropion HCl ER 24 HR (Bupropion HCl) 150 Mg Tab 150 Mg PO HS Omeprazole 20 Mg Tab 20 Mg PO DAILY Vitamin V72-Yaehl Acid (Cobalamine Combinations) 500-400 Mcg Tab 2 Tab PO DAILY Vitamin D3 (Cholecalciferol) 3,000 Unit Tab 3,000 Units PO DAILY Review of Systems General / Constitutional: No: Fever Eyes: No: Visual changes HENT: Positive: Headaches, Neck Pain Cardiovascular: No: Chest Pain or Discomfort Respiratory: No: Shortness of Breath Gastrointestinal: No: Abdominal Pain Genitourinary: No: Dysuria Musculoskeletal: Positive: Pain Skin: No Rash Neurologic: No: Weakness Psychiatric: No: Depression Endocrine: No: Polydipsia Hematologic/Lymphatic: No: Easy Bruising Physical Exam Narrative GENERAL: Well-nourished, well-developed patient. SKIN: Focused skin assessment warm/dry. HEAD: Normocephalic. Patient has mild tenderness on palpation possible to area of the scalp. EYES: No scleral icterus. No injection or drainage. NECK: Supple, trachea midline. No JVD or lymphadenopathy. Patient has mild tenderness on palpation paraspinal area cervical spine. No midline tenderness. CARDIOVASCULAR: Regular rate and rhythm without murmurs, gallops, or rubs. RESPIRATORY: Breath sounds equal bilaterally. No accessory muscle use. GASTROINTESTINAL: Abdomen soft, non-tender, nondistended. MUSCULOSKELETAL: No cyanosis, or edema. Patient has moderate tenderness in palpation right shoulder. Limited range of motion right shoulder secondary to pain. Patient has abrasion prepatellar area of the right knee. Mild diffuse tenderness over the right knee joint. Limited range of motion of the right knee joint. The knee joint stable. BACK: Nontender without obvious deformity. No CVA tenderness. Neurologic exam normal. Data Data Last Documented VS Vital Signs Date Time Temp Pulse Resp B/P (MAP) Pulse Ox O2 Delivery O2 Flow Rate FiO2 09/01/17 23:37 74 96 Room Air 09/01/17 23:33 98.1 18 148/67 (94) Orders Orders Ct Brain W/O Iv Contrast(Rout) (09/02/17 00:02) Ct Cerv Spine W/O Contrast (09/02/17 00:02) Hip, Uni(Ap&Lat) W Ap Pelvis (09/02/17 00:02) Knee, Ltd (1 Or 2vws) (09/02/17 00:02) Shoulder, Limited(2vws) (09/02/17 00:02) Splint Or Brace Apply/Monitor (09/02/17 01:18) Wound Care (09/02/17 01:18) Acetamin-Hydrocod 325-5 Mg (Astatula 5-325 (09/02/17 01:30) Tetanus/Diphtheria Tox Adult (Tetanus/Di (09/02/17 01:30) Ed Discharge Order (09/02/17 01:21) MDM Medical Decision Making Medical Screen Exam Complete: Yes Emergency Medical Condition: Yes Interpretation(s) Last Impressions Shoulder X-Ray 09/02/171 Signed Impressions: Service Date/Time: Saturday, September 02, 2017 00:25 - CONCLUSION: No acute right shoulder abnormality is identified on this two-view examination. There is osteoarthritis of the acromioclavicular joint. Oracio Bucio MD Knee X-Ray 09/02/171 Signed Impressions: Service Date/Time: Saturday, September 02, 2017 00:23 - CONCLUSION: Possible small joint effusion. No acute osseous abnormality is identified. Oracio Bucio MD Hip and Pelvis X-Ray 09/02/171 Signed Impressions: Service Date/Time: Saturday, September 02, 2017 00:20 - CONCLUSION: No acute abnormality is identified. Oracio Bucio MD Head CT 09/02/171 Signed Impressions: Service Date/Time: Saturday, September 02, 2017 00:42 - CONCLUSION: No acute intracranial abnormality is identified. No skull fracture is seen. Oracio Bucio MD Cervical Spine CT 09/02/171 Signed Impressions: Service Date/Time: Saturday, September 02, 2017 00:42 - CONCLUSION: No acute cervical spine abnormality is identified. There are degenerative changes, as above. Oracio Bucio MD Differential Diagnosis Differential diagnoses including head injury, neck injury, extremity injury. Narrative Course 66-year-old female with head, neck, shoulder, right hip, right knee injury. Status post fall. Polysporin ointment with dressing right knee. Sling right arm. Diagnosis Primary Impression: Closed head injury Qualified Codes: S09.90XA - Unspecified injury of head, initial encounter Additional Impressions: Cervical strain Qualified Codes: S16.1XXA - Strain of muscle, fascia and tendon at neck level , initial encounter Multiple contusions Abrasion, right knee, initial encounter Patient Instructions: General Instructions Additional Instructions: Head trauma instructions given. Wound care daily to right knee. Take medication as needed for pain. Follow-up with an orthopedist. Med/Other Pt SpecificInfo: Prescription(s) given Scripts Hydrocodone-Acetaminophen (Astatula) 5 Mg-325 Mg Tab 1 TAB PO Q6H Y for PAIN, #12 TAB 0 Refills Prov: Elpidio Patel MD 09/02/17 Disposition: 01 DISCHARGE HOME Condition: Stable Elpidio Patel MD Sep 02, 2017 00:09
--- NOTE | 2017-09-02 00:55 | RADRPT ---
EXAM DATE/TIME: 09/02/2017 00:20 [facility] COMPARISON: No previous studies available for comparison. INDICATIONS : Fall after tripping over brick landed on right side. MEDICAL HISTORY : None. SURGICAL HISTORY : None. ENCOUNTER: Initial ACUITY: 1 day PAIN SCORE: 8/10 LOCATION: Right hip FINDINGS: AP view of the pelvis with 2 views of the right hip joint demonstrate no fracture or dislocation. The bones are mildly under mineralized. The pelvic bones demonstrate no acute finding. There is a focal area of sclerosis in the left supra-acetabular region measuring 10 mm. No soft tissue abnormality or radiopaque foreign body is identified. CONCLUSION: No acute abnormality is identified. Oracio Bucio MD on September 02, 2017 at 0:52 Board Certified Radiologist. This report was verified electronically.
--- NOTE | 2017-09-02 00:56 | RADRPT ---
EXAM DATE/TIME: 09/02/2017 00:25 [facility] COMPARISON: No previous studies available for comparison. INDICATIONS : Fall after tripping over brick landed on right side. MEDICAL HISTORY : None. SURGICAL HISTORY : None. ENCOUNTER: Initial ACUITY: 1 day PAIN SCORE: 3/10 LOCATION: Right shoulder FINDINGS: 2 views of the right shoulder demonstrate no fracture or dislocation. Acromioclavicular joint is inta ct with osteoarthritis. No soft tissue abnormality is identified. Visualized right chest demonstrates no acute finding. CONCLUSION: No acute right shoulder abnormality is identified on this two-view examination. There is osteoarthrit is of the acromioclavicular joint. Oracio Bucio MD on September 02, 2017 at 0:54 Board Certified Radiologist. This report was verified electronically.
--- NOTE | 2017-09-02 00:57 | RADRPT ---
EXAM DATE/TIME: 09/02/2017 00:23 [facility] COMPARISON: KNEE RIGHT LTD (1 OR 2 VWS), March 05, 2017, 9:51. INDICATIONS : Fall after tripping over brick landed on right side. MEDICAL HISTORY : None. SURGICAL HISTORY : Total knee replacement, right. ENCOUNTER: Initial ACUITY: 1 day PAIN SCORE: 6/10 LOCATION: Right knee FINDINGS: AP and lateral views of the right knee demonstrate no fracture or dislocation. Bones appear mildly un dermineralized. There is hardware related to prior total knee arthroplasty with a radiolucent patella r component. There are no findings to indicate hardware failure or loosening. A small joint effusion is likely present. No soft tissue abnormality is seen. CONCLUSION: Possible small joint effusion. No acute osseous abnormality is identified. Oracio Bucio MD on September 02, 2017 at 0:55 Board Certified Radiologist. This report was verified electronically.
--- NOTE | 2017-09-02 01:00 | RADRPT ---
EXAM DATE/TIME: 09/02/2017 00:42 [facility] COMPARISON: No previous studies available for comparison. INDICATIONS : Trauma. Fell hit back of head. RADIATION DOSE: 56.34 CTDIvol (mGy) MEDICAL HISTORY : None SURGICAL HISTORY : None. ENCOUNTER: Initial ACUITY: 1 day PAIN SCALE: 7/10 LOCATION: cranial TECHNIQUE: Multiple contiguous axial images were obtained of the head. Using automated exposure control and adj ustment of the mA and/or kV according to patient size, radiation dose was kept as low as reasonably a chievable to obtain optimal diagnostic quality images. DICOM format image data is available electro nically for review and comparison. FINDINGS: CEREBRUM: There is mild generalized atrophy. Ventricles are normal. No evidence of midline shift, mass lesion, hemorrhage or acute infarction. No extra-axial fluid collections are seen. POSTERIOR FOSSA: The cerebellum and brainstem are intact. The 4th ventricle is midline. The cerebellopontine angle i s unremarkable. EXTRACRANIAL: Visualized sinuses are clear. SKULL: The calvaria is intact. No evidence of skull fracture. CONCLUSION: No acute intracranial abnormality is identified. No skull fracture is seen. Oracio Bucio MD on September 02, 2017 at 0:56 Board Certified Radiologist. This report was verified electronically.
--- NOTE | 2017-09-02 01:04 | RADRPT ---
EXAM DATE/TIME: 09/02/2017 00:42 [facility] COMPARISON: No previous studies available for comparison. INDICATIONS : Trauma. Fall. Neck pain. RADIATION DOSE: 29.41 CTDIvol (mGy) MEDICAL HISTORY : None SURGICAL HISTORY : None. ENCOUNTER: Initial ACUITY: 1 day PAIN SCALE: 5/10 LOCATION: neck TECHNIQUE: Volumetric scanning of the cervical spine was performed. Multiplanar reconstructions in the sagittal, coronal and oblique axial planes were performed. Using automated exposure control and adjustment o f the mA and/or kV according to patient size, radiation dose was kept as low as reasonably achievable to obtain optimal diagnostic quality images. DICOM format image data is available electronically f or review and comparison. FINDINGS: There is cervical kyphosis with 2 mm of anterolisthesis of C3 on C4. The atlantoaxial relationship is within normal limits. There is no prevertebral soft tissue swelling present. No fracture or dislocat ion is identified. Degenerative disc disease is present at C5-C6 and C6-C7. There is severe left face t arthrosis at C2-C3 and C3-C4 and there are degenerative changes between the anterior arch of C1 and the odontoid process. The visualized portions of the posterior fossa, paraspinous soft tissues, and upper lung zones demons trate no acute abnormality. CONCLUSION: No acute cervical spine abnormality is identified. There are degenerative changes, as above. Oracio Bucio MD on September 02, 2017 at 0:58 Board Certified Radiologist. This report was verified electronically.
[2017-09-02] MEDS ORDERED: NORC5TAB PO (01:23)
[2017-09-02] MEDS ORDERED: TETANUS/DIPHTHERIA TOXOID ADULT 0.5 ML VIAL IM ONE (01:30)
[2017-09-02] MEDS ORDERED: ACETAMINOPHEN/HYDROcodone 325 MG/5 MG TAB PO ONE (01:30)
[2017-09-02] MEDS ORDERED: ONDANSETRON HCL 4 MG/2 ML VIAL ONE (02:10)
[2017-09-02] MEDS ORDERED: ONDANSETRON HCL 4 MG/2 ML VIAL IV PUSH ONE (02:15)
== END 2017-09-02 03:03 | disposition home or self-care (01) ==
LOC: NEPC 23:25
DX: S09.90XA Unspecified injury of head, initial encounter (principal); S16.1XXA Strain of muscle, fascia and tendon at neck level, initial encounter; S80.211A Abrasion, right knee, initial encounter; E78.00 Pure hypercholesterolemia, unspecified; M19.90 Unspecified osteoarthritis, unspecified site; F32.9 Major depressive disorder, single episode, unspecified; W01.0XXA Fall on same level from slipping, tripping and stumbling without subsequent striking against object, initial encounter; Z23 Encounter for immunization; Z88.2 Allergy status to sulfonamides; Z79.899 Other long term (current) drug therapy
CPT/HCPCS: 70450; 72125; 73030; 73502; 73560; 90471; 90714; 96374; 99284; J2405